=== PATIENT | male | born 1990 | race Caucasian/White ===

== ENCOUNTER → 2019-10-02 | Outpatient (CLI) | payer BC ==
--- NOTE | 2019-10-02 12:45 | US ---
EXAMINATION TYPE: US scrotum with doppler. Grayscale and color Doppler Duplex imaging performed of mehdi card scrotum. DATE OF EXAM: 10/02/2019 COMPARISON: NONE CLINICAL HISTORY: N50.89 Testicular Mass. Right side lump x 1 month- patient states no change in size . No injury. EXAM MEASUREMENTS: TESTICLES: Right Testicle: 4.8 x 2.6 x 2.7 cm Left Testicle: 4.2 x 2.5 x 3.4 cm EPIDIDYMIS HEAD: Right Epididymis: 1.3 x 1.2 x 0.8 cm Left Epididymis: 1.1 x 0.7 x 0.7 cm Doppler performed to assess for testicular vascularity; good bilateral color flow and waveforms are s een. There is no evidence of testicular torsion. Presence of hydroceles: bilateral, trace Presence of varicoceles: no Right scrotal keiry seen lateral anterior to right teste = 0.3 x 0.3 cm. IMPRESSION: 1. Bilateral trace hydroceles. 2. No suspicious intratesticular mass is seen within either of the testes. Incidental noted benign ri ght scrotal keiry.
== END | disposition home or self-care (01) ==
LOC: RADUSWWP 11:59
PROVIDERS: ATTEND Family Medicine
DX: N43.3 Hydrocele, unspecified (principal)
CPT/HCPCS: 76870; 93975

== ENCOUNTER → 2020-07-31 | Outpatient (CLI) | payer OTHER ==
--- NOTE | 2020-08-01 12:38 | US ---
EXAMINATION TYPE: US thyroid st tissue head/neck DATE OF EXAM: 07/31/2020 COMPARISON: NONE CLINICAL HISTORY: E07.9 Disorder of thyroid, unspecified. Thyroid disorder. GLAND SIZE: Right Lobe: 5.3 x 1.5 x 2.0 cm Overall Parenchyma: homogenous Left Lobe: 5.3 x 1.7 x 1.7 cm Overall Parenchyma: homogeneous Isthmus Thickness: .3 cm NODULES RIGHT: # of nodules measured on right: 0 LEFT: # of nodules measured on left: 0 ISTHMUS: # of nodules measured in the isthmus: 0 Bilateral neck scanned, no evidence of lymphadenopathy. IMPRESSION: Normal thyroid ultrasound.
== END | disposition home or self-care (01) ==
LOC: RADUSWWP 16:50
PROVIDERS: ATTEND Family Medicine
DX: E07.9 Disorder of thyroid, unspecified (principal)
CPT/HCPCS: 76536